=== PATIENT | male | born 1965 | race African-American/Black ===

== ENCOUNTER → 2016-12-04 | Outpatient (REF) ==
[2016-12-04 16:19] LABS: THYROID STIMULATING HORMONE 1.6 uIU/mL (0.465-4.680)
[2016-12-04 17:39] LABS: PSA-TOTAL 0.84 ng/mL (0-4)
== END ==
LOC: ZLAB.WCH 15:05
PROVIDERS: Internal Medicine
DX: Z01.89 Encounter for other specified special examinations (principal)
CPT/HCPCS: G0103

== ENCOUNTER → 2017-07-02 | Outpatient (REF) | LOC: ZLAB.WCH 18:20 | DX: Z01.89 Encounter for other specified special examinations (principal) ==

== ENCOUNTER → 2017-12-07 | Outpatient (REF) ==
[2017-12-07 17:17] LABS: THYROID STIMULATING HORMONE 1.66 uIU/mL (0.465-4.680)
[2017-12-07 19:57] LABS: PSA-TOTAL 0.84 ng/mL (0-4)
== END ==
LOC: ZLAB.WCH 16:11
PROVIDERS: Internal Medicine
DX: Z01.89 Encounter for other specified special examinations (principal)
CPT/HCPCS: G0103

== ENCOUNTER → 2018-12-09 | Outpatient (REF) ==
[2018-12-09 17:06] LABS: THYROID STIMULATING HORMONE 2.89 uIU/mL (0.465-4.680)
[2018-12-09 17:08] LABS: PSA-TOTAL 0.61 ng/mL (0-4)
== END ==
LOC: ZLAB.WCH 16:17
PROVIDERS: Internal Medicine
DX: Z01.89 Encounter for other specified special examinations (principal)
CPT/HCPCS: G0103